=== PATIENT | female | born 1960 | race African-American/Black ===

== ENCOUNTER 2025-02-15 05:47 | Inpatient (IN) | payer MEDICAID, OTHER ==
[2025-02-15] VITALS (7 sets, daily range): BP systolic 139–160; BP diastolic 75–95; PULSE 74–86; RESP 18–22; TEMP 36.7–37.2; O2SAT 90–97
[~2025-02-15] VITALS: Ht 170.2 cm; Wt 140.3 kg
[2025-02-15] MEDS: METHYLPREDNISOLONE SOD SUCC 125MG/2ML (ACT-O-VIAL) IV STA (06:48)
[2025-02-15] MEDS: FUROSEMIDE 40MG/4ML VIAL IVP ONE (07:11)
[2025-02-15] MEDS: ACETAMINOPHEN 325MG TABLET PO ONE (07:12)
[2025-02-15] MEDS: ALBUTEROL (0.083%) 2.5MG/3ML NEB HHN SCH (07:14)
[2025-02-15] MEDS: IPRATROPIUM BROMIDE (0.02%) 0.5MG/2.5ML NEB HHN STA (07:14)
[2025-02-15 08:01] LABS: CHLORIDE 103 mEq/L (98-107); POTASSIUM 5.2 mEq/L (3.5-5.1)
[2025-02-15 08:02] LABS: CARBON DIOXIDE 36 mEq/L (21-32); SODIUM 145 mEq/L (136-145)
[2025-02-15 08:03] LABS: CALCIUM 9.7 mg/dL (8.7-10.4)
[2025-02-15 08:07] LABS: CREATININE 1.2 mg/dL (0.6-1.0); GLUCOSE 163 mg/dL (70-105)
[2025-02-15 08:08] LABS: TROPONIN I HIGH SENSITIVITY 19 ng/L (3.0-34); UREA NITROGEN BLOOD 25 mg/dL (9-23)
[2025-02-15 08:10] LABS: BASOPHILS % 0.6 % (0.0-2.0); DIFFERENTIAL COMMENT 0; EOSINOPHILS % 0.4 % (0.0-5.0); HEMATOCRIT. 37.2 % (36.0-48.0); HEMOGLOBIN. 11.2 g/dL (12.0-16.0); LYMPHOCYTES % 9.5 % (20.0-50.0); MEAN CORPUSCULAR HEMOGLOBIN 26.5 pg (28.0-32.0); MEAN CORPUSCULAR HGB CONC 30.1 g/dL (31.0-37.0); MEAN CORPUSCULAR VOLUME 88.2 fL (81.0-99.0); MONOCYTES % 5.3 % (2.0-8.0); NEUTROPHILS % 84.2 % (40.0-76.0); PLATELET 288 x1000/uL (130-400); RED BLOOD CELL COUNT 4.22 mill/uL (4.2-5.4); RED CELL DISTRIBUTION WIDTH 16.7 % (11.6-14.6); WHITE BLOOD COUNT 7.4 x1000/uL (4.5-11.0)
[2025-02-15 10:13] LABS: TROPONIN I HIGH SENSITIVITY 21 ng/L (3.0-34)
[2025-02-15] MEDS ORDERED: ONDANSETRON HCL 4MG/2ML INJ IV PRN (11:00)
[2025-02-15] MEDS: FUROSEMIDE 100MG/10ML VIAL IVP SCH (11:52)
[2025-02-15] MEDS ORDERED: IPRATROPIUM/ALBUTEROL 0.5-3(2.5)MG/3ML NEB HHN SCH (12:00)
[2025-02-15 14:01] LABS: *AMPHETAMINES SCREEN URINE NEGATIVE (NEGATIVE); *BARBITURATES SCREEN URINE NEGATIVE (NEGATIVE); *BENZODIAZEPINES SCREEN URINE NEGATIVE (NEGATIVE)
[2025-02-15 14:02] LABS: *COCAINE SCREEN URINE NEGATIVE (NEGATIVE); CANNABINOID URINE SCREEN NEGATIVE (NEGATIVE); ECSTASY MDMA SCREEN URINE NEGATIVE (NEGATIVE); METHADONE URINE SCREEN NEGATIVE (NEGATIVE); OPIATES URINE SCREEN NEGATIVE (NEGATIVE); PHENCYCLIDINE URINE SCREEN NEGATIVE (NEGATIVE)
[2025-02-15] MEDS: METOLAZONE 2.5MG TABLET PO NR (14:49)
[2025-02-15 15:17] LABS: HEPATITIS B SURFACE ANTIGEN NEGATIVE (Negative)
[2025-02-15 15:38] LABS: HEPATITIS C AB NON REACTIVE (Neg) (Negative)
[2025-02-16] VITALS: BP 144/87; PULSE 107; RESP 20; TEMP 36.2; O2SAT 97
== END 2025-02-15 19:00 | disposition short-term general hospital (02) | DRG 194 ==
LOC: ER 05:47 → 7WST 07:08 → EDBEDREQTM 07:31 → EDBEDREQ 07:31
PROVIDERS: ADMIT Internal Medicine; ATTEND Internal Medicine
DX: I11.0 Hypertensive heart disease with heart failure (principal); J96.20 Acute and chronic respiratory failure, unspecified whether with hypoxia or hypercapnia; N17.0 Acute kidney failure with tubular necrosis; D64.9 Anemia, unspecified; I50.43 Acute on chronic combined systolic (congestive) and diastolic (congestive) heart failure; E66.01 Morbid (severe) obesity due to excess calories; E87.5 Hyperkalemia; Z86.718 Personal history of other venous thrombosis and embolism; Z99.81 Dependence on supplemental oxygen; Z68.42 Body mass index [BMI] 45.0-49.9, adult
CPT/HCPCS: 36415; 71045; 80048; 80305; 84484; 85025; 86705; 87340; 93005; 94070; 94640; 99291; A4606; J1940; J2919